=== PATIENT | male | born 1955 | race Caucasian/White ===

== ENCOUNTER → 2016-08-18 | Day surgery (SDC) | payer BC ==
[~2016-08-18] MED LIST: ACETAMINOPHEN PO; ACETAMINOPHEN-1 EACH PO; CEPHALEXIN500 M1 PO; EQ ALLERGY & S1 EACH PO; REGLAN10 MG PO
--- NOTE | ~2016-08-18 | OR ---
Unit #: [id number] #: [id number] Patient: REYES GUPTA [id number] [address] [place], [place] [address] [id number] MR#: [id number] NAME: REYES GUPTA. ROOM: Date of Procedure: 08/18/2016 Admission Date: 08/18/2016 Surgeon: Messi Richards M.D. : 1955 Attending Physician: Messi Richards M.D. Referring Physician: Messi Richards M.D. Primary Care Physician: Primary Care Physician No OPERATIVE REPORT PRIMARY CARE PHYSICIAN Nirav Vigil M.D. PREOPERATIVE DIAGNOSES The patient has presented with a history of dysphagia as well as history of early satiety. It is noteworthy that he was found to have Doris esophagitis and it is not clear why he was not put on Diflucan. He has been started on Diflucan and has come for elective endoscopy. PROCEDURE PERFORMED Upper gastrointestinal endoscopy. POSTOPERATIVE DIAGNOSES The entire esophageal mucosa was normal. The patient, however, had postsurgical changes of Billroth II gastroenteroanastomosis. There was considerable amount of solid food residue in the gastric remnant. Both the afferent and efferent loops were normal and patent, and mucosa in these areas was normal. RECOMMENDATIONS The patient has postsurgical gastroparesis. He was advised to continue Diflucan for 10 days and was advised to take Reglan 10 mg p.o. t.i.d. half an hour before major meals. In addition, he will use small frequent low residue meals and also try not to eat late at night. Lastly, he was also advised to reduce the amount of fiber in the diet. He will be followed up in the office in 8 to 10 weeks' time. SEDATION USED MAC. DESCRIPTION OF PROCEDURE Following detailed explanation of potential risks and complications of an upper endoscopy, namely perforation, bleeding, and complications related to sedation, the patient was brought to the GI lab and laid in the left lateral decubitus position. Lubricated tip of the Olympus video upper endoscope was passed through the bite block into the proximal esophagus under direct vision. The entire esophageal mucosa was examined and was found to be normal. Previously seen Doris had resolved. The mucosa throughout the esophagus was normal. The gastroesophageal junction was also normal, there being no stricture or esophagitis. The scope was then advanced into the gastric cavity. A small gastric remnant with evidence of Billroth II gastroenteroanastomosis was noted. Both the afferent and Unit #: [id number] #: [id number] Patient: REYES GUPTA efferent loops were intubated and appeared normal. Substantial amount of solid food residue was seen in the gastric remnant. This was suctioned as far as possible, there was a lot of solid food residue, which could not be suctioned. The scope was withdrawn in the distal esophagus. The entire esophageal mucosa was examined all the way up to the pharynx and no additional findings noted. The patient tolerated the procedure without any postprocedure complications. Dictated by... Gosia Thomas/arias TD: 08/19/2016 08:27 JOB #: [id number] CC: Nirav Vigil M.D. OPERATIVE REPORT Page 1 of 1 X Messi Richards MD X PROCEDURE OPERATIVE NOTE
== END | disposition home or self-care (01) ==
LOC: COPS 09:02
DX: K63.89 Other specified diseases of intestine (principal); K21.9 Gastro-esophageal reflux disease without esophagitis; K31.84 Gastroparesis; Z98.890 Other specified postprocedural states; Z90.3 Acquired absence of stomach [part of]
CPT/HCPCS: J2250